=== PATIENT | female | born 1960 | race Hispanic/Latino ===

== ENCOUNTER 2020-12-14 13:52 | Emergency (ER) | payer OTHER ==
--- OUTSIDE RECORDS SUMMARY | 2020-12-14 13:55 | XMS REPORT | Continuity of Care Document ---
:1960 Author Organization [facility] t Address [address] [place] [address] Care Team Providers Name Role Phone Ericka MARTINEZ Attending Clinician Problems This patient has no known problems. Allergies, Adverse Reactions, Alerts This patient has no known allergies or adverse reactions. Medications This patient has no known medications. Procedures This patient has no known procedures. Encounters Start End Encounter Admission Attending Care Care Encounter Source Date/Time Date/Time Type Type Clinicians Facility Department ID 2020-04-23 2020-04-23 Office GAYLE Barnett [id number] 13:01:59 14:01:39 Visit [facility] [id number] [facility] [id number] Results Test Description Test Time Test Comments Results Result [facility] e Comments SCR MAMM 2020-05-26 - SCR MAMM BILATERAL BILATERAL MARTHA 12:54:40 MARTHA CAD CAD DIGITAL DIGITALBILATERAL DIGITAL SCREENING MAMMOGRAM 3D/2D WITH CAD: 05/23/2020CLINICAL: Asymptomatic. Digital breast tomosynthesis was performed in addition to routine CC and MLO views. Current mammographic images were evaluated by either a [employer] M-Vu or a [employer] ImageChecker CAD (computer aided detection system). Comparison is made to exam dated 12/27/2016 mammogram - [facility]. There are scattered fibroglandular tissues in both breasts. No suspicious mass, architectural distortion, malignant type calcification, or lymph node abnormality detected. Breast architecture is stable compared to prior exams.IMPRESSION: NEGATIVEThere is no mammographic evidence of malignancy. Resume annual screening mammography in one year. Gunnar burton/joni:05/26/2020 12:54:40 Product Design Specialist: Deidra Joe MM, [facility]ography[facility] sent: BIRADS 1-2 Normal Mammogram BI-RADS: 1 Negative
[2020-12-14] MEDS ORDERED: DIAZEPAM 5 MG TABLET ONE (16:20)
[2020-12-14] MEDS ORDERED: KETOROLAC 30 MG/ML INJ ONE (16:20)
--- NOTE | 2020-12-14 17:57 | RAD REPORT ---
EXAM DESCRIPTION: US - Extremity Venous Uni Ltd - 12/14/2020 5:29 pm CLINICAL HISTORY: PAINleft lower extremity COMPARISON: None. TECHNIQUE: Real-time sonographic evaluation of the left lower extremity deep venous system was perfo rmed. FINDINGS: Normal compressibility, flow augmentation, phasic flow and spontaneous flow are identified in the left lower extremity common femoral, superficial femoral, proximal popliteal veins. Thrombus is present in the distal popliteal vein with non compressibility. No suspicious findings at the ankle . No mass or abnormal fluid collection in the soft tissues. IMPRESSION: Left leg deep venous thrombosis distal popliteal vein.
--- NOTE | 2020-12-14 18:32 | ER ---
Nurse's Notes [facility] Name: Brigitte Wright Age: 60 yrs Sex: Female : 1960 Arrival Date: 12/14/2020 Time: 13:57 Bed 2 Private MD: Diagnosis: Acute embolism and thrombosis of deep veins of lower extremity Presentation: 12/14 14:10 Chief complaint: Patient states: L leg pain for 5 days. Radiates down entire leg. Left ll1 lower back pain also. No trauma or falls. Coronavirus screen: Client denies travel out of the [place] in the last 14 days. At this time, the client does not indicate any symptoms associated with coronavirus-19. Ebola Screen: Patient denies travel to an Ebola-affected area in the 21 days before illness onset. Initial Sepsis Screen: Does the patient meet any 2 criteria? No. Patient's initial sepsis screen is negative. Does the patient have a suspected source of infection? Yes: Bone or joint infection. Risk Assessment: Do you want to hurt yourself or someone else? Patient reports no desire to harm self or others. Onset of symptoms was December 09, 2020. 14:10 Method Of Arrival: Ambulatory ll1 14:10 Acuity: CHINMAY 3 ll1 Triage Assessment: 14:15 General: Appears uncomfortable, Behavior is calm, cooperative, appropriate for age. ll1 Pain: Complains of pain in L leg Quality of pain is described as aching. Neuro: No deficits noted. Cardiovascular: No deficits noted. Respiratory: No deficits noted. Musculoskeletal: Circulation, motion, and sensation intact. Capillary refill < 3 seconds, Range of motion: intact in all extremities, Reports pain in L leg. Historical: - Allergies: 14:13 Codeine; ll1 14:13 SHELLFISH; ll1 - PMHx: 14:13 Hypertension; High Cholesterol; ll1 - PSHx: 14:13 Heart Surgery; ll1 14:13 bilateral knee sx; ; ll1 - Immunization history:: Flu vaccine is up to date. Client reports receiving the 2nd dose of the Covid vaccine. - Social history:: Smoking status: Patient reports the use of cigarette tobacco products, smokes one-half pack cigarettes per day. Screenin:44 Abuse screen: Denies threats or abuse. Nutritional screening: No deficits noted. ll1 Tuberculosis screening: No symptoms or risk factors identified. Assessment: 15:51 General: Appears in no apparent distress. uncomfortable, Behavior is cooperative, vg1 crying. Pain: Complains of pain in left leg Pain currently is 10 out of 10 on a pain scale. Noted to be crying, grimacing, guarding. Neuro: Level of Consciousness is awake, alert, obeys commands, Oriented to person, place, time, situation. Cardiovascular: Patient's skin is warm and dry. Respiratory: Airway is patent Respiratory effort is even, unlabored. GI: No signs and/or symptoms were reported involving the gastrointestinal system. : No signs and/or symptoms were reported regarding the genitourinary system. EENT: No signs and/or symptoms were reported regarding the EENT system. Derm: Skin is intact, Skin is pink, warm \T\ dry. Musculoskeletal: Swelling present in left leg. 16:54 Reassessment: Patient appears in no apparent distress at this time. Patient and/or vg1 family updated on plan of care and expected duration. Pain level reassessed. Patient is alert, oriented x 3, equal unlabored respirations, skin warm/dry/pink. Patient states feeling better. 17:52 Reassessment: Patient appears in no apparent distress at this time. Patient and/or vg1 family updated on plan of care and expected duration. Pain level reassessed. Patient is alert, oriented x 3, equal unlabored respirations, skin warm/dry/pink. Stated pain is back in left leg, sharp. Provider notified. Vital Signs: 14:10 BP 135 / 57; Pulse 69; Resp 16; Temp 99.0; Pulse Ox 99% ; Weight 80.29 kg; Height 5 ft. ll1 1 in. (154.94 cm); Pain 10/10; 15:52 BP 177 / 68; Pulse 67; Resp 20; Pulse Ox 100% on R/A; vg1 16:55 BP 140 / 73; Pulse 72; Resp 16; Pulse Ox 98% on R/A; vg1 17:51 BP 110 / 61; Pulse 72; Resp 16; Pulse Ox 100% on R/A; vg1 14:10 Body Mass Index 33.44 (80.29 kg, 154.94 cm) 1 ED Course: 13:57 Patient arrived in ED. mr 14:12 Triage completed. ll1 14:14 Arm band placed on. ll1 15:39 Edgar Cornejo PA is PHCP. [facility] 15:39 Tre Cazares MD is Attending Physician. jm 15:51 Radhika Flores, RN is Primary Nurse. vg1 15:53 Patient has correct armband on for positive identification. Bed in low position. Call vg1 light in reach. Side rails up X2. 17:33 US Extremity Venous Unilateral Ltd In Process Unspecified. EDMS 17:51 Ultrasound completed. Patient tolerated well. Notified SALES COORDINATOR/MORRIS meyers. sg3 18:45 No provider procedures requiring assistance completed. Patient did not have IV access vg1 during this emergency room visit. Administered Medications: 16:09 Drug: Ketorolac 30 mg Route: IM; Site: right deltoid; vg1 16:54 Follow up: Response: No adverse reaction; Pain is decreased vg1 16:09 Drug: Valium 5 mg Route: PO; vg1 16:54 Follow up: Response: No adverse reaction vg1 Outcome: 18:31 Discharge ordered by . [facility] 18:45 Discharged to home ambulatory. vg1 18:45 Condition: stable 18:45 Discharge instructions given to patient, Instructed on discharge instructions, follow up and referral plans. medication usage, Demonstrated understanding of instructions, follow-up care, medications, Prescriptions given X 2. 18:45 Patient left the ED. vg1 Signatures: Dispatcher [employer] EDMS Edgar Cornejo PA PA [facility] Bailey Ribera Sarah sg3 Radhika Flores, RN RN vg1 Zeferino Garcia RN RN 1
--- NOTE | 2020-12-14 18:32 | EDPHYS ---
Physician Documentation [facility] Name: Brigitte Wright Age: 60 yrs Sex: Female : 1960 Arrival Date: 12/14/2020 Time: 13:57 Bed 2 Private MD: ED Physician Tre Cazares HPI: 12/14 17:15 This 60 yrs old Female presents to ER via Ambulatory with complaints of Leg jmm Pain. 17:15 The patient presents with pain. Onset: The symptoms/episode began/occurred suddenly. jmm Modifying factors: The symptoms are alleviated by nothing. the symptoms are aggravated by nothing. Associated signs and symptoms: Pertinent positives: swelling, Pertinent negatives fever. This is a 60 year old female with a history of htn, hlp that presents to the ED with complaints of left sided foot pain, leg pain. Pain begins at the left buttocks and radiates down the entire leg. Denies inury. Denies urinary or bowel complaints. . Historical: - Allergies: 14:13 Codeine; ll1 14:13 SHELLFISH; ll1 - PMHx: 14:13 Hypertension; High Cholesterol; ll1 - PSHx: 14:13 Heart Surgery; ll1 14:13 bilateral knee sx; ; ll1 - Immunization history:: Flu vaccine is up to date. Client reports receiving the 2nd dose of the Covid vaccine. - Social history:: Smoking status: Patient reports the use of cigarette tobacco products, smokes one-half pack cigarettes per day. ROS: 17:15 Constitutional: Negative for fever, chills, and weight loss, Cardiovascular: Negative jmm for chest pain, palpitations, and edema, Respiratory: Negative for shortness of breath, cough, wheezing, and pleuritic chest pain. 17:15 MS/extremity: Positive for pain. 17:15 All other systems are negative. Exam: 17:15 Constitutional: This is a well developed, well nourished patient who is awake, alert, jmm and in no acute distress. Head/Face: atraumatic. Eyes: EOMI, no conjunctival erythema appreciated ENT: Moist Mucus Membranes Neck: Trachea midline, Supple Chest/axilla: Normal chest wall appearance and motion. Cardiovascular: Regular rate and rhythm. No edema appreciated Respiratory: Normal respirations, no respiratory distress appreciated Abdomen/GI: Non distended, soft Back: Normal ROM 17:15 Musculoskeletal/extremity: left lateral leg ttp, compartments are soft, full dorsalis pulse. 17:15 Skin: Appearance: Color: normal in color. 17:15 Neuro: Orientation: is normal, Mentation: is normal, Memory: is normal. 17:15 Psych: Behavior/mood is pleasant, cooperative. Vital Signs: 14:10 BP 135 / 57; Pulse 69; Resp 16; Temp 99.0; Pulse Ox 99% ; Weight 80.29 kg; Height 5 ft. ll1 1 in. (154.94 cm); Pain 10/10; 15:52 BP 177 / 68; Pulse 67; Resp 20; Pulse Ox 100% on R/A; vg1 16:55 BP 140 / 73; Pulse 72; Resp 16; Pulse Ox 98% on R/A; vg1 17:51 BP 110 / 61; Pulse 72; Resp 16; Pulse Ox 100% on R/A; vg1 14:10 Body Mass Index 33.44 (80.29 kg, 154.94 cm) ll1 MDM: 15:43 Patient medically screened. enrike 18:28 Data reviewed: vital signs, nurses notes. Counseling: I had a detailed discussion with art the patient and/or guardian regarding: the historical points, exam findings, and any diagnostic results supporting the discharge/admit diagnosis, radiology results, the need for outpatient follow up, to return to the emergency department if symptoms worsen or persist or if there are any questions or concerns that arise at home. ED course: Patient is alert and non toxic in appearance in the ED. No signs of resp distress. Denies chest pain or shortness of breath. Will treat DVT outpatient , and otherwise given strict return precautions. Patient understood and agrees with the plan of care. . 12/14 15:55 Order name: US Extremity Venous Unilateral Ltd; Complete Time: 18:00 art Administered Medications: 16:09 Drug: Ketorolac 30 mg Route: IM; Site: right deltoid; vg1 16:54 Follow up: Response: No adverse reaction; Pain is decreased vg1 16:09 Drug: Valium 5 mg Route: PO; vg1 16:54 Follow up: Response: No adverse reaction vg1 Disposition: 12/15 06:59 Co-signature as Attending Physician, Tre Cazares MD I agree with the assessment and enrkie plan of care. Disposition: 12/14/20 18:31 Discharged to Home. Impression: Acute embolism and thrombosis of deep veins of lower extremity. - Condition is Stable. - Discharge Instructions: Deep Vein Thrombosis. - Prescriptions for Tramadol 50 mg Oral Tablet - take 1 tablet by ORAL route every 6 hours as needed; 20 tablet. Eliquis 5 mg Oral tablet - take 2 tablet by ORAL route 2 times per day for 7 days; 28 tablet. - Medication Reconciliation Form, Thank You Letter, Antibiotic Education, Prescription Opioid Use, Work release form form. - Follow up: Private Physician; When: 2 - 3 days; Reason: Recheck today's complaints, Continuance of care, Re-evaluation by your physician. - Notes: Please follow up with your primary care provider for reevaluation within 1 week. Return to the ED if you develop increased shortness of breath or chest pain Signatures: Dispatcher [employer] EDMS Tre Cazares MD MD cha Mickail, Joel, PA PA jmm Garcia, Victoria RN RN vg1 Zeferino Gracia RN RN ll1 Corrections: (The following items were deleted from the chart) 12/14 18:45 18:31 12/14/2020 18:31 Discharged to Home. Impression: Acute embolism and thrombosis of vg1 deep veins of lower extremity. Condition is Stable. Forms are Medication Reconciliation Form, Thank You Letter, Antibiotic Education, Prescription Opioid Use. Follow up: Private Physician; When: 2 - 3 days; Reason: Recheck today's complaints, Continuance of care, Re-evaluation by your physician. art
[2020-12-15 15:07] VITALS: TEMP 97.4
[2020-12-15 15:13] VITALS: BP 110/61; O2SAT 100
== END 2020-12-14 18:45 | disposition home or self-care (01) ==
LOC: ER 13:52
DX: I82.4Z2 Acute embolism and thrombosis of unspecified deep veins of left distal lower extremity (principal); I10 Essential (primary) hypertension; F17.210 Nicotine dependence, cigarettes, uncomplicated; Z88.5 Allergy status to narcotic agent; Z91.013 Allergy to seafood
CPT/HCPCS: 93971; 96372; 99283

== ENCOUNTER 2020-12-21 19:00 | Emergency (ER) | payer OTHER ==
--- OUTSIDE RECORDS SUMMARY | 2020-12-21 19:02 | XMS REPORT | Continuity of Care Document ---
:1960 Author Organization [facility] t Address [address] [place] [address] Care Team Providers Name Role Phone Ericka [...] Department ID 2020-04-23 2020-04-23 Office GAYLE Barnett [id number] 13:01:59 14:01:39 Visit [facility] [id number] [facility] [id number] Results Test Description Test Time Test Comments Results Result [facility] e Comments SCR MAMM 2020-05-26 - SCR MAMM BILATERAL BILATERAL MARTHA 12:54:40 MARTHA CAD CAD DIGITAL DIGITALBILATERAL DIGITAL SCREENING MAMMOGRAM 3D/2D WITH CAD: 05/23/2020CLINICAL: Asymptomatic. Digital breast tomosynthesis was performed in addition to routine CC and MLO views. Current mammographic images were evaluated by either a [employer] M-Vu or a [employer] ImageChecker CAD (computer aided detection system). Comparison is made to exam dated 12/27/2016 mammogram - [facility]. There are scattered fibroglandular tissues in both breasts. No suspicious mass, architectural distortion, malignant type calcification, or lymph node abnormality detected. Breast architecture is stable compared to prior exams.IMPRESSION: NEGATIVEThere is no mammographic evidence of malignancy. Resume annual screening mammography in one year. Gunnar burton/joni:05/26/2020 12:54:40 Art Manager: Deidra Joe MM, [facility] sent: BIRADS 1-2 Normal Mammogram BI-RADS: 1 Negative
--- NOTE | 2020-12-21 20:18 | EDPHYS ---
Physician Documentation [facility] Name: Brigitte Wright Age: 60 yrs Sex: Female : 1960 Arrival Date: 12/21/2020 Time: 19:01 Bed 7 Private MD: ED Physician Humberto Castañeda HPI: 12/21 19:59 This 60 yrs old Female presents to ER via Ambulatory with complaints of Leg mh7 Pain - dvt. 19:59 The patient presents with a history of running out of pain medications, Tramadol. The mh7 complaints affect the left calf. Context: The problem was sustained at an unknown site, resulted from DVT, the patient can fully bear weight, the patient is able to ambulate, can ambulate using a cane, Problem is a result from a previous injury: No. 20:03 Onset: The symptoms/episode began/occurred 1 week(s) ago. Modifying factors: The mh7 symptoms are alleviated by Tramadol the symptoms are aggravated by weight bearing. Associated signs and symptoms: Pertinent positives: calf tenderness, Pertinent negatives fever, nausea, numbness, rash, swelling, tingling, vomiting, warmth, weakness. Treatment prior to arrival includes: no previous treatment. Severity of symptoms: At their worst the symptoms were moderate, 7 day(s) ago, in the emergency department the symptoms have improved, moderately. The patient has been recently seen at the [facility] Emergency Department, last week. Patient was diagnosed with left lower extremity DVT one week ago here. She has run out of Tramadol that was prescribed for pain. She is taking Eliquis as prescribed but has only a few left. She has a follow up appointment with Hematology in 3 days. She denies any headache, chest pain, SOB, abdominal pain, fever, cough, nausea, vomiting, dizziness, numbness/tingling, or weakness.. Historical: - Allergies: 19:18 Codeine; ca1 19:18 SHELLFISH; ca1 - PMHx: 19:18 High Cholesterol; Hypertension; ca1 19:18 DVT; ca1 - PSHx: 19:18 Heart Surgery; bilateral knee sx; ; ca1 - Immunization history:: Client reports receiving the 2nd dose of the Covid vaccine, Date received: December 13, 2020 Pneumococcal vaccine is not up to date, Flu vaccine is up to date. - Social history:: Smoking status: Patient reports the use of cigarette tobacco products, denies chronic smoking, but will smoke occasionally. ROS: 20:03 Constitutional: Negative for fever, chills, and weight loss, Eyes: Negative for injury, mh7 pain, redness, and discharge, ENT: Negative for injury, pain, and discharge, Neck: Negative for injury, pain, and swelling, Cardiovascular: Negative for chest pain, palpitations, and edema, Respiratory: Negative for shortness of breath, cough, wheezing, and pleuritic chest pain, Abdomen/GI: Negative for abdominal pain, nausea, vomiting, diarrhea, and constipation, Back: Negative for injury and pain, : Negative for injury, bleeding, discharge, and swelling, Skin: Negative for injury, rash, and discoloration, Neuro: Negative for headache, weakness, numbness, tingling, and seizure, Psych: Negative for depression, anxiety, suicide ideation, homicidal ideation, and hallucinations, Allergy/Immunology: Negative for hives, rash, and allergies, Endocrine: Negative for neck swelling, polydipsia, polyuria, polyphagia, and marked weight changes, Hematologic/Lymphatic: Negative for swollen nodes, abnormal bleeding, and unusual bruising. Exam: 20:03 Constitutional: This is a well developed, well nourished patient who is awake, alert, mh7 and in no acute distress. Head/Face: Normocephalic, atraumatic. Eyes: Pupils equal round and reactive to light, extra-ocular motions intact. Lids and lashes normal. Conjunctiva and sclera are non-icteric and not injected. Cornea within normal limits. Periorbital areas with no swelling, redness, or edema. Neck: Trachea midline, no thyromegaly or masses palpated, and no cervical lymphadenopathy. Supple, full range of motion without nuchal rigidity, or vertebral point tenderness. No Meningismus. Chest/axilla: Normal chest wall appearance and motion. Nontender with no deformity. No lesions are appreciated. Cardiovascular: Regular rate and rhythm with a normal S1 and S2. No gallops, murmurs, or rubs. Normal PMI, no JVD. No pulse deficits. Respiratory: Lungs have equal breath sounds bilaterally, clear to auscultation and percussion. No rales, rhonchi or wheezes noted. No increased work of breathing, no retractions or nasal flaring. Abdomen/GI: Soft, non-tender, with normal bowel sounds. No distension or tympany. No guarding or rebound. No evidence of tenderness throughout. Back: No spinal tenderness. No costovertebral tenderness. Full range of motion. Skin: Warm, dry with normal turgor. Normal color with no rashes, no lesions, and no evidence of cellulitis. 20:03 Neuro: Awake and alert, GCS 15, oriented to person, place, time, and situation. Cranial nerves II-XII grossly intact. Motor strength 5/5 in all extremities. Sensory grossly intact. Cerebellar exam normal. Normal gait. Psych: Awake, alert, with orientation to person, place and time. Behavior, mood, and affect are within normal limits. 20:03 Musculoskeletal/extremity: Extremities: noted in the left calf: swelling, tenderness, mild, ROM: intact in all extremities, Circulation is intact in all extremities. Pulses: are normal with no appreciated deficits, Perfusion: the patient is normally perfused throughout, Perfusion: the extremity is normally perfused throughout, Sensation intact. Compartment Syndrome exam of affected extremity: is normal. no numbness, no tingling, no sensation deficit, no palor, no weak pulses, Joints: All joints appear normal with full range of motion. Weight bearing: can bear weight with assistance only, uses cane, Tendon exam: specific tendon testing normal through active and passive range of motion DVT Exam: negative Homans' sign noted on exam, no appreciated bluish discoloration, no erythema, no increased warmth, pain, that is mild, of the left calf, swelling, that is mild, of the left calf, tenderness, that is mild, of the left calf, Calves: are tender, on left, are not equal in size: left is larger than right. Vital Signs: 19:14 BP 173 / 51; Pulse 52; Resp 16 S; Temp 97.6; Pulse Ox 97% ; Weight 80.29 kg (R); Height ca1 5 ft. 1 in. (154.94 cm) (R); Pain 7/10; 19:14 Body Mass Index 33.44 (80.29 kg, 154.94 cm) ca1 MDM: 20:13 Differential diagnosis: DVT, Medication refill. Data reviewed: vital signs, nurses 7 notes, old medical records. Data interpreted: Pulse oximetry: on room air is 97 %. Interpretation: normal. Counseling: I had a detailed discussion with the patient and/or guardian regarding: the historical points, exam findings, and any diagnostic results supporting the discharge/admit diagnosis, the presence of at least one elevated blood pressure reading (>120/80) during this emergency department visit, the need for outpatient follow up, to return to the emergency department if symptoms worsen or persist or if there are any questions or concerns that arise at home. 20:[address] [facility] Administered Medications: 20:07 Drug: traMADol 50 mg Route: PO; ea 20:31 Follow up: Response: No adverse reaction ea 20:32 Follow up: Response: No adverse reaction ea Disposition: 12/21/20 20:17 Discharged to Home. Impression: Deep Vein Thrombosis, left lower extremity, Medication Refill. - Condition is Stable. - Discharge Instructions: Deep Vein Thrombosis. - Prescriptions for Eliquis 5 mg Oral tablet - take 2 tablet by ORAL route 2 times per day for 7 days; 28 tablet. Tramadol 50 mg Oral Tablet - take 1 tablet by ORAL route every 6 hours As needed as needed; 20 tablet. - Medication Reconciliation Form, Thank You Letter, Antibiotic Education, Prescription Opioid Use form. - Follow up: Private Physician; When: 2 - 3 days; Reason: Worsening of condition, Recheck today's complaints, Continuance of care, Re-evaluation by your physician. - Problem is an ongoing problem. - Symptoms have improved. Signatures: Rhiannon Patten RN RN ea Acob, Cheryl, RN RN ca1 Holmes, Maurice, MD MD 7 Corrections: (The following items were deleted from the chart) 20:31 20:17 12/21/2020 20:17 Discharged to Home. Impression: Deep Vein Thrombosis, left lower ea extremity; Medication Refill. Condition is Stable. Forms are Medication Reconciliation Form, Thank You Letter, Antibiotic Education, Prescription Opioid Use. Follow up: Private Physician; When: 2 - 3 days; Reason: Worsening of condition, Recheck today's complaints, Continuance of care, Re-evaluation by your physician. Problem is an ongoing problem. Symptoms have improved. [facility]
--- NOTE | 2020-12-21 20:18 | ER ---
Nurse's Notes [facility] Name: Brigitte Wright Age: 60 yrs Sex: Female : 1960 Arrival Date: 12/21/2020 Time: 19:01 Bed 7 Private MD: Diagnosis: Deep Vein Thrombosis, left lower extremity;Medication Refill Presentation: 12/21 19:14 Chief complaint: Patient's son or daughter states: SON: Last week she was diagnosed ca1 with DVT on the Leg. She has an appointment with the [employer] seal on Tuesday, but she ran out of pain meds and she's still in pain so we're here. Coronavirus screen: Client denies travel out of the [place] in the last 14 days. At this time, the client does not indicate any symptoms associated with coronavirus-19. Ebola Screen: Patient negative for fever greater than or equal to 101.5 degrees Fahrenheit, and additional compatible Ebola Virus Disease symptoms Patient denies exposure to infectious person. Patient denies travel to an Ebola-affected area in the 21 days before illness onset. No symptoms or risks identified at this time. Initial Sepsis Screen: Does the patient meet any 2 criteria? No. Patient's initial sepsis screen is negative. Does the patient have a suspected source of infection? No. Patient's initial sepsis screen is negative. Risk Assessment: Do you want to hurt yourself or someone else? Patient reports no desire to harm self or others. Onset of symptoms was December 21, 2020. 19:14 Method Of Arrival: Ambulatory ca1 19:14 Acuity: CHINMAY 4 ca1 Historical: - Allergies: 19:18 Codeine; ca1 19:18 SHELLFISH; ca1 - PMHx: 19:18 High Cholesterol; Hypertension; ca1 19:18 DVT; ca1 - PSHx: 19:18 Heart Surgery; bilateral knee sx; ; ca1 - Immunization history:: Client reports receiving the 2nd dose of the Covid vaccine, Date received: December 13, 2020 Pneumococcal vaccine is not up to date, Flu vaccine is up to date. - Social history:: Smoking status: Patient reports the use of cigarette tobacco products, denies chronic smoking, but will smoke occasionally. Screenin:26 Abuse screen: Denies threats or abuse. Nutritional screening: No deficits noted. ea Tuberculosis screening: No symptoms or risk factors identified. Fall Risk None identified. Assessment: 20:10 General: Appears uncomfortable, Behavior is calm, cooperative, appropriate for age. ea Pain: Denies pain. Neuro: Level of Consciousness is awake, alert, obeys commands, Oriented to person, place, time. Cardiovascular: Patient's skin is warm and dry. Respiratory: Airway is patent Respiratory effort is even, unlabored, Respiratory pattern is regular, symmetrical. Derm: Skin is pink, warm \T\ dry. 20:28 Reassessment: Patient and/or family updated on plan of care and expected duration. Pain ea level reassessed. Patient is alert, oriented x 3, equal unlabored respirations, skin warm/dry/pink. Discharge instruction given to patient verbalized the understanding of instruction. pt left ED ambulatory tolerating well. Vital Signs: 19:14 BP 173 / 51; Pulse 52; Resp 16 S; Temp 97.6; Pulse Ox 97% ; Weight 80.29 kg (R); Height ca1 5 ft. 1 in. (154.94 cm) (R); Pain 7/10; 19:14 Body Mass Index 33.44 (80.29 kg, 154.94 cm) ca1 ED Course: 19:01 Patient arrived in ED. as 19:17 Triage completed. ca1 19:18 Arm band placed on right wrist. ca1 19:43 Humberto Castañeda MD is Attending Physician. [facility] 20:07 Rhiannon Patten, KELLEY is Primary Nurse. ea 20:27 Patient has correct armband on for positive identification. Bed in low position. Call ea light in reach. Side rails up X2. 20:29 No provider procedures requiring assistance completed. Inserted. ea 20:31 Patient did not have IV access during this emergency room visit. ea Administered Medications: 20:07 Drug: traMADol 50 mg Route: PO; ea 20:31 Follow up: Response: No adverse reaction ea 20:32 Follow up: Response: No adverse reaction ea Outcome: 20:17 Discharge ordered by . [facility] 20:29 Discharged to home ambulatory, with family. ea 20:29 Condition: stable 20:29 Discharge instructions given to patient. 20:31 Patient left the ED. ea Signatures: Elsy Combs Elena, RN RN ea Acob, Cheryl, RN RN [facility] Humberto Castañeda MD MD [id number]
[2020-12-21] MEDS ORDERED: TRAMADOL HCL 50 MG TAB ONE (20:22)
[2020-12-21 20:49] VITALS: BP 173/51; TEMP 97.6; O2SAT 97
== END 2020-12-21 20:31 | disposition home or self-care (01) ==
LOC: ER 19:00
DX: I82.4Z2 Acute embolism and thrombosis of unspecified deep veins of left distal lower extremity (principal); Z76.0 Encounter for issue of repeat prescription; I10 Essential (primary) hypertension; F17.210 Nicotine dependence, cigarettes, uncomplicated; Z88.5 Allergy status to narcotic agent; Z91.013 Allergy to seafood
CPT/HCPCS: 99283